=== PATIENT | female | born 1990 | race Caucasian/White ===

== ENCOUNTER → 2017-08-14 | Outpatient (CLI) | payer MEDICAID ==
[~2017-08-14] MED LIST: GADOBUTROL 10 ML VIAL IVP ONE
== END ==
LOC: FIMAGING 12:15
PROVIDERS: ATTEND Physician Assistant Medical
DX: M50.23 Other cervical disc displacement, cervicothoracic region (principal)
CPT/HCPCS: A9585

== ENCOUNTER → 2018-02-26 | Outpatient (CLI) | payer MEDICAID | LOC: CIMAGING 08:50 | PROVIDERS: ATTEND Internal Medicine | DX: R07.81 Pleurodynia (principal) | CPT/HCPCS: 71046-PO ==

== ENCOUNTER → 2018-10-07 | Outpatient (CLI) | payer MEDICAID | LOC: CIMAGING 15:53 | PROVIDERS: ATTEND Internal Medicine | DX: S61.215A Laceration without foreign body of left ring finger without damage to nail, initial encounter (principal) | CPT/HCPCS: 73140-PO ==

== ENCOUNTER → 2019-03-08 | Outpatient (CLI) | payer MEDICAID | LOC: EMCIMAGING 08:17 | PROVIDERS: ATTEND Physician Assistant Medical | DX: R20.2 Paresthesia of skin (principal); R53.1 Weakness | CPT/HCPCS: 72157-PN ==

== ENCOUNTER → 2019-04-07 | Outpatient (CLI) | payer MEDICAID | LOC: BRMIMAGING 07:45 ==